=== PATIENT | female | born 1995 | race Caucasian/White ===

== ENCOUNTER 2017-07-10 14:33 | Emergency (ER) | payer OTHER ==
[~2017-07-10] VITALS: Ht 167.6 cm; Wt 67.0 kg
[2017-07-10 14:34] VITALS: BP 124/71
== END 2017-07-10 15:33 | disposition home or self-care (01) ==
LOC: ED 15:30
DX: S83.422A Sprain of lateral collateral ligament of left knee, initial encounter (principal); X50.1XXA Overexertion from prolonged static or awkward postures, initial encounter; Y93.44 Activity, trampolining; Y92.89 Other specified places as the place of occurrence of the external cause; Y99.8 Other external cause status
CPT/HCPCS: 29505